=== PATIENT | male | born 1945 | race Caucasian/White ===

== ENCOUNTER → 2020-08-23 08:50 | Outpatient (CLI) | payer MEDICARE, SELFPAY ==
[2020-08-17 12:53] VITALS: BMI 25.9
--- NOTE | 2020-08-23 13:18 | NEURO ---
NCS and/or EMG Patient Report DATE OF SERVICE: 08/23/20 Ervin Everett is a 75-year-old male who presents for electrodiagnostic testing of the lower limbs. He has chief complaint of numbness and tingling in the left foot, with pain for approximately 2 years. He also has similar symptoms in the right foot, though not as severe. Electrodiagnostic findings: Left peroneal motor nerve demonstrates normal distal latency, amplitude with reduced conduction velocity. Right peroneal motor nerve demonstrates normal distal latency and amplitude with borderline reduced conduction velocity. Tibial conduction velocity is decreased bilaterally. Prolonged tibial and peroneal F waves are noted. Prolonged H reflex bilaterally. Right superficial peroneal responses within normal limits all other sensory nerves tested, including the sural nerve bilaterally, left superficial peroneal nerve and plantar nerves did not demonstrate responses. On needle EMG, all muscles tested in the lower limb showed no evidence of denervation with normal motor unit action potentials. Electrodiagnostic impression: This is an abnormal study in the lower limbs. 1. 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 2. There is no electrodiagnostic evidence for tarsal tunnel syndrome. 3. There is no electrodiagnostic evidence for lumbosacral radiculopathy. If there are any further questions, please do not hesitate to contact me.
== END ==
PROVIDERS: PCP Family Medicine
DX: R20.2 Paresthesia of skin (principal); R20.0 Anesthesia of skin; M79.605 Pain in left leg; G62.9 Polyneuropathy, unspecified; G20 Parkinson's disease
CPT/HCPCS: 95886; 95912